=== PATIENT | female | born 2000 | race American Indian/Alaskan Native ===

== ENCOUNTER 2021-09-01 09:54 | Emergency (ER) | payer OTHER ==
[2021-09-01] MEDS ORDERED: HYDROcodone/ACETAMINOPHEN 5-325 MG TAB PO ONE (11:50)
[2021-09-01] MEDS ORDERED: ALUM-MAG HYDROXIDE-SIMETHICONE 200-200-20MG/5ML ORAL LIQD 30 ML PO ONE (11:50)
[2021-09-01] MEDS ORDERED: ACETAMINOPHEN 325 MG TAB PO ONE (11:50)
[2021-09-01] MEDS ORDERED: FAMOTIDINE 20 MG TAB PO ONE (11:50)
[2021-09-01 12:39] LABS: Bacteria,Urine 1+ /HPF (Negative); Bilirubin,Urine NEG (Negative); Blood,Urine MOD (Negative); Color,Urine Yellow (Yellow); Mucus,Urine FEW /HPF
--- NOTE | 2021-09-01 12:46 | Emergency Department Report ---
ED General Adult HPI - General Chief complaint: Abdominal Pain Stated complaint: PT COMPLAIN OF LEFT RIB PAIN Time Seen by Provider: 09/01/21 11:40 Source: patient Mode of arrival: Ambulatory Limitations: No Limitations - History of Present Illness Initial comments: Patient is a 21-year-old female presents emergency room complaints of left upper abdominal pain and left upper back pain that began a week ago. She states that she has been having a fever. She denies any cough, nausea, vomiting, diarrhea, hemoptysis, shortness of breath, chest pain, urinary symptoms. Patient denies any past medical history. She denies any medication allergies. Severity scale (0 -10): 10 - Related Data Previous Rx's Medication Instructions Recorded Last Taken Type Famotidine [Pepcid] 40 mg PO QHS #30 tab 09/01/21 Unknown Rx Sucralfate [Carafate] 1 gm PO ACHS #21 tablet 09/01/21 Unknown Rx cephALEXin [Keflex] 500 mg PO BID 10 Days #20 capsule 09/01/21 Unknown Rx Allergies Allergy/AdvReac Type Severity Reaction Status Date / Time No Known Allergies Allergy Verified 09/01/21 11:26 ED Review of Systems ROS: Stated complaint: PT COMPLAIN OF LEFT RIB PAIN Other details as noted in HPI Comment: All other systems reviewed and negative ED Past Medical Hx - Past Medical History Previous Medical History?: No - Surgical History Past Surgical History?: No - Medications Home Medications: Home Medications Medication Instructions Recorded Confirmed Last Taken Type Famotidine [Pepcid] 40 mg PO QHS #30 tab 09/01/21 Unknown Rx Sucralfate [Carafate] 1 gm PO ACHS #21 tablet 09/01/21 Unknown Rx cephALEXin [Keflex] 500 mg PO BID 10 Days #20 capsule 09/01/21 Unknown Rx ED Physical Exam - General Limitations: No Limitations General appearance: alert, in no apparent distress - Head Head exam: Present: atraumatic, normocephalic - Eye Eye exam: Present: normal appearance - ENT ENT exam: Present: mucous membranes moist - Respiratory Respiratory exam: Present: normal lung sounds bilaterally. Absent: respiratory distress, wheezes, rales, rhonchi, stridor, chest wall tenderness, accessory muscle use, decreased breath sounds, prolonged expiratory - Cardiovascular Cardiovascular Exam: Present: regular rate, normal rhythm, normal heart sounds. Absent: systolic murmur, diastolic murmur, rubs, gallop - GI/Abdominal GI/Abdominal exam: Present: soft, tenderness (LUQ), normal bowel sounds. Abs ent: distended, guarding, rebound, rigid - Neurological Exam Neurological exam: Present: alert, oriented X3 - Psychiatric Psychiatric exam: Present: normal affect, normal mood - Skin Skin exam: Present: warm, dry, intact ED Course Vital Signs 09/01/21 09/01/21 11:26 13:59 Temperature 100.2 F H 98.7 F Pulse Rate 95 H 92 H Respiratory 16 16 Rate Blood Pressure 117/62 112/65 [Left] O2 Sat by Pulse 95 99 Oximetry ED Medical Decision Making - Lab Data Result diagrams: 09/01/21 12:03 09/01/21 12:03 Lab Results 09/01/21 09/01/21 09/01/21 Range/Units 12:03 12:03 12:03 WBC 11.0 (4.5-11.0) K/mm3 RBC 4.64 (3.65-5.03) M/mm3 Hgb 12.8 (10.1-14.3) gm/dl Hct 38.7 (30.3-42.9) % MCV 83 (79-97) fl MCH 28 (28-32) pg MCHC 33 (30-34) % RDW 14.5 (13.2-15.2) % Plt Count 298 (140-440) K/mm3 Lymph % (Auto) 11.6 L (13.4-35.0) % [place] % (Auto) 13.7 H (0.0-7.3) % Eos % (Auto) 0.6 (0.0-4.3) % Baso % (Auto) 0.4 (0.0-1.8) % Lymph # (Auto) 1.3 (1.2-5.4) K/mm3 [place] # (Auto) 1.5 H (0.0-0.8) K/mm3 Eos # (Auto) 0.1 (0.0-0.4) K/mm3 Baso # (Auto) 0.0 (0.0-0.1) K/mm3 Seg Neutrophils % 73.7 H (40.0-70.0) % Seg Neutrophils # 8.1 H (1.8-7.7) K/mm3 Sodium 134 L (137-145) mmol/L Potassium 3.5 L (3.6-5.0) mmol/L Chloride 97.0 L (98-107) mmol/L Carbon Dioxide 21 L (22-30) mmol/L Anion Gap 20 mmol/L BUN 5 L (7-17) mg/dL Creatinine 0.6 (0.6-1.2) mg/dL Estimated GFR > 60 ml/min BUN/Creatinine Ratio 8 % Glucose 86 (65-100) mg/dL Calcium 9.5 (8.4-10.2) mg/dL Total Bilirubin 1.00 (0.1-1.2) mg/dL AST 10 (5-40) units/L ALT 9 (7-56) units/L Alkaline Phosphatase 59 (35-129) units/L Total Protein 8.1 (6.3-8.2) g/dL Albumin 3.9 (3.9-5) g/dL Albumin/Globulin Ratio 0.9 % Lipase 8 L (13-60) units/L HCG, Qual Negative (Negative) Urine Color (Yellow) Urine Turbidity (Clear) Urine pH (5.0-7.0) Ur Specific [place] (1.003-1.030) Urine Protein (Negative) mg/dL Urine Glucose (UA) (Negative) mg/dL Urine Ketones (Negative) mg/dL Urine Blood (Negative) Urine Nitrite (Negative) Urine Bilirubin (Negative) Urine Urobilinogen (<2.0) mg/dL Ur Leukocyte Esterase (Negative) Urine WBC (Auto) (0.0-6.0) /HPF Urine RBC (Auto) (0.0-6.0) /HPF U Epithel Cells (Auto) (0-13.0) /HPF Urine Bacteria (Auto) (Negative) /HPF Urine Mucus /HPF 09/01/21 Range/Units Unknown WBC (4.5-11.0) K/mm3 RBC (3.65-5.03) M/mm3 Hgb (10.1-14.3) gm/dl Hct (30.3-42.9) % MCV (79-97) fl MCH (28-32) pg MCHC (30-34) % RDW (13.2-15.2) % Plt Count (140-440) K/mm3 Lymph % (Auto) (13.4-35.0) % [place] % (Auto) (0.0-7.3) % Eos % (Auto) (0.0-4.3) % Baso % (Auto) (0.0-1.8) % Lymph # (Auto) (1.2-5.4) K/mm3 [place] # (Auto) (0.0-0.8) K/mm3 Eos # (Auto) (0.0-0.4) K/mm3 Baso # (Auto) (0.0-0.1) K/mm3 Seg Neutrophils % (40.0-70.0) % Seg Neutrophils # (1.8-7.7) K/mm3 Sodium (137-145) mmol/L Potassium (3.6-5.0) mmol/L Chloride (98-107) mmol/L Carbon Dioxide (22-30) mmol/L Anion Gap mmol/L BUN (7-17) mg/dL Creatinine (0.6-1.2) mg/dL Estimated GFR ml/min BUN/Creatinine Ratio % Glucose (65-100) mg/dL Calcium (8.4-10.2) mg/dL Total Bilirubin (0.1-1.2) mg/dL AST (5-40) units/L ALT (7-56) units/L Alkaline Phosphatase (35-129) units/L Total Protein (6.3-8.2) g/dL Albumin (3.9-5) g/dL Albumin/Globulin Ratio % Lipase (13-60) units/L HCG, Qual (Negative) Urine Color Yellow (Yellow) Urine Turbidity Hazy (Clear) Urine pH 5.0 (5.0-7.0) Ur Specific [place] 1.012 (1.003-1.030) Urine Protein 30 mg/dl (Negative) mg/dL Urine Glucose (UA) Neg (Negative) mg/dL Urine Ketones 20 (Negative) mg/dL Urine Blood Mod (Negative) Urine Nitrite Neg (Negative) Urine Bilirubin Neg (Negative) Urine Urobilinogen 2.0 (<2.0) mg/dL Ur Leukocyte Esterase Mod (Negative) Urine WBC (Auto) 31.0 H (0.0-6.0) /HPF Urine RBC (Auto) 9.0 (0.0-6.0) /HPF U Epithel Cells (Auto) 2.0 (0-13.0) /HPF Urine Bacteria (Auto) 1+ (Negative) /HPF Urine Mucus Few /HPF Vital Signs 09/01/21 09/01/21 11:26 13:59 Temperature 100.2 F H 98.7 F Pulse Rate 95 H 92 H Respiratory 16 16 Rate Blood Pressure 117/62 112/65 [Left] O2 Sat by Pulse 95 99 Oximetry - Radiology Data Radiology results: report reviewed Ordering Physician: MARYBEL HINOJOSA Date of Service: 09/01/21 Procedure(s): XR abd series w cxr 1V Accession Number(s): [id number] cc: MARYBEL HINOJOSA Fluoro Time In Minutes: ABDOMINAL SERIES WITH CHEST X-RAY ONE VIEW INDICATION: abd pain, fever. COMPARISON: None. IMPRESSION: Single view of the chest is within normal limits. Supine and upright views of the abdomen demonstrate no evidence for dilated bowel, fluid levels or free air. No pathologic calcifications no significant abnormality is identified. Signer Name: Dmitri Myles Jr, MD Signed: 09/01/2021 1:38 PM Workstation Name: [id number] Transcribed By: TTR Dictated By: DMITRI MYLES JR, MD Electronically Authenticated By: DMITRI MYLES JR, MD Signed Date/Time: 09/01/211337 DD/ 36 TD/TT: - Medical Decision Making Patient is a 21-year-old female presents emergency room complaints of left upper abdominal pain and left upper back pain that began a week ago. She states that she has been having a fever. She denies any cough, nausea, vomiting, diarrhea, hemoptysis, shortness of breath, chest pain, urinary symptoms. Patient denies any past medical history. She denies any medication allergies. Initial vitals with low-grade fever, otherwise stable. On exam patient has left upper quadrant and palpation, no guarding, no rebound, no rigidity, normal bowel sounds, no peritoneal signs. Labs are stable. UA shows evidence of UTI. XR abd with tae st: Single view of the chest is within normal limits. Supine and upright views of the abdomen demonstrate no evidence for dilated bowel, fluid levels or free air. No pathologic calcifications no significant abnormality is identified. Patient given p.o. medications while in the emergency department was able to tolerate p.o. intake without difficulty and symptoms improved. Discussed all findings with patient. Patient given prescription for medications. Discussed the importance of outpatient primary care and GI follow-up. Advised patient please take medication as prescribed. Increase fluid intake. Eat a bland liquid diet and slowly advance diet as tolerated. Follow the diet for acid re flux/ulcers. Follow-up with your primary care doctor. Follow-up with a GI doctor. Return to emergency room for any new or worsening symptoms. Recommend outpatient COVID-19 testing and if positive please follow the CDC guidelines. Critical care attestation.: If time is entered above; I have spent that time in minutes in the direct care of this critically ill patient, excluding procedure time. ED Disposition Clinical Impression: Abdominal pain Qualifiers: Abdominal location: left upper quadrant Qualified Code(s): R10.12 - Left upper quadrant pain UTI (urinary tract infection) Qualifiers: Urinary tract infection type: acute cystitis Hematuria presence: with hematuria Qualified Code(s): N30.01 - Acute cystitis with hematuria Disposition: HOME / SELF CARE / HOMELESS Is pt being admited?: No Does the pt Need Aspirin: No Condition: Stable Instructions: Abdominal Pain, Adult, Food Choices for Gastroesophageal Reflux Disease, Adult, Urinary Tract Infection, Adult, Abdominal Pain (ED) Additional Instructions: please take medication as prescribed. Increase fluid intake. Eat a bland liquid diet and slowly advance diet as tolerated. Follow the diet for acid reflux/ulcers. Follow-up with your primary care doctor. Follow-up with a GI doctor. Return to emergency room for any new or worsening symptoms. Recommend outpatient COVID-19 testing and if positive please follow the CDC guidelines. Prescriptions: Famotidine [Pepcid] 40 mg PO QHS #30 tab Sucralfate [Carafate] 1 gm PO ACHS #21 tablet cephALEXin [Keflex] 500 mg PO BID 10 Days #20 capsule Referrals: JOEL QUINTERO MD [Primary Care Provider] - 3-5 Days TIGIST CEJA MD [Staff Physician] - 3-5 Days [facility] [Provider Group] - 3-5 Days [facility] [Provider Group] - 3-5 Days Time of Disposition: 13:51 Print Language: MOHAWK
[2021-09-01 12:51] LABS: Basophils % (Auto) 0.4 % (0.0-1.8); Eosinophils # (Auto) 0.1 K/mm3 (0.0-0.4); Eosinophils % (Auto) 0.6 % (0.0-4.3); Hematocrit 38.7 % (30.3-42.9); Hemoglobin 12.8 gm/dl (10.1-14.3); Lymphocytes # (Auto) 1.3 K/mm3 (1.2-5.4); Lymphocytes % (Auto) 11.6 % (13.4-35.0); Mean Corpuscular HGB Conc 33 % (30-34); Mean Corpuscular Volume 83 fl (79-97); Monocytes # (Auto) 1.5 K/mm3 (0.0-0.8); Monocytes % (Auto) 13.7 % (0.0-7.3); Platelet Count 298 K/mm3 (140-440); Red Blood Count 4.64 M/mm3 (3.65-5.03); Red Cell Distribution Width 14.5 % (13.2-15.2)
[2021-09-01 13:11] LABS: Alanine Aminotransferase 9 units/L (7-56); Albumin 3.9 g/dL (3.9-5); BUN/Creatinine Ratio 8; Blood Urea Nitrogen 5 mg/dL (7-17); Calcium 9.5 mg/dL (8.4-10.2); Hemolysis Index 2
--- NOTE | 2021-09-01 13:43 | XRay Report ---
ABDOMINAL SERIES WITH CHEST X-RAY ONE VIEW INDICATION: abd pain, fever. COMPARISON: None. IMPRESSION: Single view of the chest is within normal limits. Supine and upright views of the abdome n demonstrate no evidence for dilated bowel, fluid levels or free air. No pathologic calcifications no significant abnormality is identified. Signer Name: Dmitri Myles Jr, MD Signed: 09/01/2021 1:38 PM Workstation Name: [id number]
[2021-09-01 14:01] VITALS: BP 112/65
== END 2021-09-01 14:01 | disposition home or self-care (01) ==
LOC: ED 09:54
DX: R10.9 Unspecified abdominal pain (principal); N39.0 Urinary tract infection, site not specified
CPT/HCPCS: 36415; 74022; 80053; 81001; 83690; 84703; 85025; 87076; 87086; 87186; 99284